=== PATIENT | female | born 1970 | race Caucasian/White ===

== ENCOUNTER 2017-01-27 22:36 | Emergency (ER) | payer BC, OTHER ==
[~2017-01-27] VITALS: Ht 170.2 cm; Wt 56.7 kg
[~2017-01-27 22:36] MED LIST: CLONAZEPAM 0.50.5 M1 PO; NORCO 5-325 TA1 EACH PO; PERCOCET 5-3251 EACH PO; PREDNISONE 20 M20 MG PO; SUMATRIPTAN SU100 MG PO; TESSALON PERLE100 MG PO; VALIUM5 MG PO; XANAX 0.5 MG0.5 M1; ZOFRAN ODT4 MG PO; ZPAK PO
[2017-01-28] MEDS ORDERED: PHENERGAN 25 MG25 M1 PO (01:16)
[2017-01-28 01:19] VITALS: BP 108/66
== END 2017-01-28 01:23 | disposition home or self-care (01) ==
LOC: ER 22:36
DX: G43.909 Migraine, unspecified, not intractable, without status migrainosus (principal); F17.210 Nicotine dependence, cigarettes, uncomplicated

== ENCOUNTER → 2019-09-02 | Outpatient (CLI) | payer BC, OTHER ==
[~2019-09-02] MED LIST changes: +PHENERGAN 25 MG25 M1 PO
== END | disposition home or self-care (01) ==
LOC: GI 09:11
DX: R15.9 Full incontinence of feces (principal)